=== PATIENT | female | born 1995 | race Caucasian/White ===

== ENCOUNTER 2020-11-11 13:23 | Outpatient (REF) | payer OTHER, SELFPAY ==
[2020-11-11 14:38] LABS: Abs Immature Grans 0.04 10^3/uL (0.0-0.06); Absolute Basophil Count 0.05 10^3/uL (0.0-0.2); Absolute Eosinophil Count 0.21 10^3/uL (0.0-0.7); Absolute Monocyte Count 1.03 10^3/uL (0.1-0.8); Absolute Neutrophil Count 6.77 10^3/uL (1.2-6.7); Basophils % 0.5; HGB 12.9 g/dL (11.2-15.7); Immature Grans % 0.4; Lymphocytes % 23.6; MCH 27.9 pg (27.0-33.0); MCHC 32.3 % (32.0-36.0); MCV 86.6 fL (80-95); Monocytes % 9.7; Neutrophils % 63.8; Nucleated RBC 0 %; Platelet Count 352 10^3/uL (130-400); RBC 4.62 10^6/uL (3.93-5.22); RDW 12.2 % (11.7-14.6); RDW-SD 38.6 fL
[2020-11-11 15:28] LABS: ALT 22 U/L (14-59); AST 18 U/L (15-37); Albumin 3.3 g/dL (3.4-5.0); Alkaline Phosphatase 46 U/L (46-116); BUN 10 mg/dL (7-18); Bilirubin, Total 0.2 mg/dL (0.2-1.0); CREATININE 0.6 mg/dL (0.55-1.02); Chloride 104 mmol/L (98-107); Glucose 83 mg/dL (74-106); Potassium 4.4 mmol/L (3.5-5.1); Sodium 139 mmol/L (136-145)
[2020-11-13 12:26] LABS: Hepatitis A Antibody IgM Negative (Negative); Hepatitis B Core Antibody Negative (Negative); Hepatitis B surface Ag Negative (Negative); Hepatitis C Ab w Rflx HCV PCR Negative (Negative)
== END 2020-11-11 13:24 | disposition home or self-care (01) ==
LOC: LBN 13:23
PROVIDERS: Visit Provider Nurse Practitioner Family
DX: R10.84 Generalized abdominal pain (principal)
CPT/HCPCS: 80053; 86704; 86709; 86803; 87340; 85025; 87086